=== PATIENT | male | born 1995 | race Hispanic/Latino ===

== ENCOUNTER 2018-05-18 19:51 | Emergency (ER) | payer BC, OTHER ==
[~2018-05-18] VITALS: Ht 177.8 cm; Wt 117.9 kg
--- NOTE | 2018-05-18 20:00 | NUR ---
PT BROUGHT TO [facility]. [facility] ON. PT STATES HE HAS HAD THIS ABSCESS ON LOWER BACK FOR A FEW DAYS, IT IS VERY PAINFUL, DRAINING PURULENT DRAINAGE. REPORTED TO DR. MULLER.
[2018-05-18 20:07] VITALS: BP 152/86
[2018-05-18] MEDS ORDERED: CLEOCIN PO STA (20:07)
[2018-05-18] MEDS ORDERED: TORADOL ONE (20:12)
[2018-05-18] MEDS ORDERED: CLEOCIN ONE (20:13)
--- NOTE | 2018-05-18 20:16 | ER.PDOC ---
General Chief Complaint: Requesting Medical Care Stated Complaint: ABSCESS ON LOWER BACK Time seen by MD: 20:06 Source: patient Exam Limitations: no limitations History of Present Illness Initial Comments Pt recently returned from [place] and want to get this abscess in the gluteal cleft treated. Pt says that it has been going on for a while. Timing/Duration: changing over time Severity: mild Quality: painful Identified Cause: possibly Past Medical History Medical History: no pertinent history Surgical History: no surgical history Family History Significant Family History: no pertinent family hx Social History Smoking: non-smoker Alcohol Use: occassionally Drug Use: none Reviewed Nursing Reviewed: Nursing Assessment Constitutional: no symptoms reported EENTM: no symptoms reported Respiratory: no symptoms reported Cardiovascular: no symptoms reported Gastrointestinal: no symptoms reported Genitourinary: no symptoms reported Musculoskeletal: no symptoms reported Skin: see HPI Psychiatric/Neurological: no symptoms reported Endocrine: no symptoms reported Hematologic/Lymphatic: no symptoms reported All Other Systems: Reviewed and Negative Physical Exam General Appearance: alert, no distress Skin: abscess, other (Pilonidal cyst) Location: other (Gluteal cleft) Character: symmetric With: tenderness, swelling Extremities: non-tender EENT: eyes nml inspection Neck: trachea midline Respiratory: no resp. distress CVS: reg. rate & rhythm Abdomen: non-tender NEURO/PSYCH: oriented x 3 Progress Progress Pt has Pilonidal cyst. Its not fluctuant. Advised to get surgical eval. Will start him on Clindamycin. Departure Time of Disposition: 20:14 Disposition: 01 HOME, SELF-CARE Impression: Primary Impression: Pilonidal cyst Condition: Stable Duration or Time Spent with Pa: 10 IGNACIO MULLER MD May 18, 2018 20:16
[2018-05-18] MEDS ORDERED: TORADOL IM ONE (20:30)
[2018-05-18 20:32] VITALS: BP 152/86
== END 2018-05-18 20:25 | disposition home or self-care (01) ==
LOC: ER 19:51
DX: L05.01 Pilonidal cyst with abscess (principal)
CPT/HCPCS: 96372; 99283; J1885